=== PATIENT | male | born 1985 | race Caucasian/White ===

== ENCOUNTER 2017-08-13 12:43 | Emergency (ER) | payer OTHER ==
[2017-08-13 12:47] VITALS: BP 107/71
--- NOTE | 2017-08-13 14:08 | ER Document Report ---
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 Patient went to urgent care and they stated that it looked like it required stitches and that they "did not know how to do stitches. " Patient denies any numbness or tingling, states that happen on the propeller of the helicopter. He states he has done this before but never required stitches. Bleeding is controlled with bandaging. TRAVEL OUTSIDE OF THE [place] IN LAST 30 DAYS: No - Related Data Allergies/Adverse Reactions: No Known Allergies Allergy (Verified 08/13/17 12:43) Past Medical History - General Information source: Patient - Social History Smoking Status: Unknown if Ever Smoked Family History: Reviewed & Not Pertinent Review of Systems - Review of Systems Constitutional: No symptoms reported EENT: No symptoms reported Cardiovascular: No symptoms reported Respiratory: No symptoms reported Gastrointestinal: No symptoms reported Genitourinary: No symptoms reported Male Genitourinary: No symptoms reported Musculoskeletal: No symptoms reported Skin: See HPI Hematologic/Lymphatic: No symptoms reported Neurological/Psychological: No symptoms reported Physical Exam - Vital signs Vitals: Temp Pulse Resp BP Pulse Ox 98.4 F 69 16 107/71 97 08/13/17 12:46 08/13/17 12:46 08/13/17 12:46 08/13/17 12:46 08/13/17 12:46 - Notes Notes: PHYSICAL EXAMINATION: GENERAL: Well-appearing and in no acute distress. HEAD: Atraumatic, normocephalic. EYES: Pupils equal round and reactive to light, extraocular movements intact, sclera anicteric, conjunctiva are normal. NECK: Normal range of motion, supple without lymphadenopathy LUNGS: CTAB and equal. No wheezes rales or rhonchi. HEART: Regular rate and rhythm without murmurs EXTREMITIES: Normal range of motion, no pitting edema. No cyanosis. NEUROLOGICAL: Cranial nerves grossly intact. Normal sensory/motor exams. PSYCH: Normal mood, normal affect. SKIN: Warm, Dry, normal turgor, 2 small less than 1 cm each superficial lacerations that do not open to the left distal second digit, approximately 1 cm into the distal portion of the fingernail right where it connects to the skin minimal bleeding with palpation only Course - Re-evaluation Re-evalutation: 08/13/17 19:54 Both lacerations are very superficial and do not open, are already approximated without manipulation, finger was cleansed with Shur-Clens and saline copiously and bandaged with a pressure dressing. Patient advised to take the pressure dressing off in 24 hours unless he starts to get number tingling to the tip of the finger. Patient advised to change dressing daily after that until wounds are healed. Wounds did not need sutures, Dermabond or even Steri-Strips. I did place patient on antibiotic for finger laceration increased risk of infection. 08/13/17 19:55 - Vital Signs Vital signs: Temp Pulse Resp BP Pulse Ox 98.4 F 69 16 107/71 97 08/13/17 12:46 08/13/17 12:46 08/13/17 12:46 08/13/17 12:46 08/13/17 12:46 Discharge - Discharge Clinical Impression: Laceration of finger Qualifiers: Encounter type: initial encounter Finger: unspecified finger Damage to nail status: with damage Foreign body presence: without foreign body Laterality: left Qualified Code(s): S61.319A - Laceration without foreign body of unspecified finger with damage to nail, initial encounter Condition: Stable Disposition: HOME, SELF-CARE Instructions: Prophylactic Antibiotic ([facility]) Additional Instructions: Keep this dressing on for 24 hours. Do not get it wet. For the next 5 days or until healed, keep dressing on finger. Return immediately for any new or worsening symptoms. Follow up with primary care provider, call tomorrow to make followup appointment. Prescriptions: Cephalexin [Cephalexin 250 MG Tablet] 1 tab PO BID #10 tablet Forms: Return to Work
== END 2017-08-13 14:27 | disposition home or self-care (01) ==
LOC: ER 12:43
DX: S61.311A Laceration without foreign body of left index finger with damage to nail, initial encounter (principal); W45.8XXA Other foreign body or object entering through skin, initial encounter; Y93.89 Activity, other specified; Y99.0 Civilian activity done for income or pay
CPT/HCPCS: 99282